=== PATIENT | male | born 1950 | race Caucasian/White ===

== ENCOUNTER → 2016-08-24 | Outpatient (CLI) | payer OTHER ==
[~2016-08-24] VITALS: Ht 170.2 cm; Wt 90.0 kg
[~2016-08-24] MED LIST: ASPI-435 PO; ATOR-54 PO; FLUO0.05 TOP; FRS/80 PO; LISI2.5T5 PO; SNG10 PO; TICA1TAB PO; TPRSR/25 PO; [UNRECOGNIZED DRUG - CODE] TOP
[2016-08-24 13:44] VITALS: BP 110/59; PULSE 74; Ht 170.2 cm; Wt 90.0 kg
== END | disposition home or self-care (01) ==
LOC: C.NEUR 12:32
PROVIDERS: ATTEND Internal Medicine Pulmonary Disease
DX: G47.33 Obstructive sleep apnea (adult) (pediatric) (principal); L50.1 Idiopathic urticaria; I25.5 Ischemic cardiomyopathy; M19.90 Unspecified osteoarthritis, unspecified site; E78.5 Hyperlipidemia, unspecified; Z82.49 Family history of ischemic heart disease and other diseases of the circulatory system; Z80.0 Family history of malignant neoplasm of digestive organs; Z87.891 Personal history of nicotine dependence; Z79.82 Long term (current) use of aspirin

== ENCOUNTER → 2017-02-22 | Outpatient (CLI) | payer OTHER ==
[~2017-02-22] VITALS: Ht 170.2 cm; Wt 87.7 kg
[~2017-02-22] MED LIST changes: +LISI-1116 PO; -LISI2.5T5 PO
[2017-02-22 13:05] VITALS: BP 126/70; PULSE 88; Ht 170.2 cm; Wt 87.7 kg
== END | disposition home or self-care (01) ==
LOC: C.NEUR 11:25
PROVIDERS: ATTEND Physician Assistant Medical
DX: G47.30 Sleep apnea, unspecified (principal); L50.1 Idiopathic urticaria; L30.9 Dermatitis, unspecified; I25.5 Ischemic cardiomyopathy